=== PATIENT | male | born 1995 | race Caucasian/White ===

== ENCOUNTER 2016-08-23 12:25 | Emergency (ER) | payer OTHER ==
[~2016-08-23] VITALS: Ht 177.8 cm; Wt 107.5 kg
[2016-08-23 12:28] VITALS: TEMP 36.6; Ht 177.8 cm; Wt 107.5 kg
[2016-08-23 14:10] LABS: URINE APPEARANCE CLEAR (CLEAR); URINE BILIRUBIN NEG (NEG); URINE COLOR YELLOW; URINE NITRITE NEG (NEG); URINE SPECIFIC GRAVITY 1.025 (1.000-1.030); UROBILINOGEN NEG (NEG)
[2016-08-23 14:19] LABS: MANUAL MICROSCOPIC REQUIRED? NO; REVIEW REQ? NO
[2016-08-23 14:27] LABS: BASO % 0.6 %; BASO ABS # 0.04 K/uL (0-0.2); COMPLETE YES; EOS % 1.2 %; HEMATOCRIT 44.2 % (42-52); IG% 0.3 %; LYMPH % 30.7 %; LYMPH ABS # 2.02 K/uL (1.2-3.4); MEAN CELL VOLUME 83.1 fL (80-100); MEAN CORPUSCULAR HEMOGLOBIN 29.5 pg (25-34); MEAN CORPUSCULAR HGB CONC 35.5 g/dl (32-36); MEAN PLATELET VOLUME 10.6 fL (7.4-10.4); MONO % 7.3 %; NEUT % 59.9 %; PLATELET COUNT 251 K/uL (130-400); RED BLOOD COUNT 5.32 M/uL (4.7-6.1); WHITE BLOOD COUNT 6.59 K/uL (4.8-10.8)
[2016-08-23 14:32] LABS: CALCIUM 9.2 mg/dl (8.5-10.1)
--- NOTE | 2016-08-23 15:28 | DIAGNOSTIC IMAGING REPORT ---
ULTRASOUND TESTES AND SCROTUM CLINICAL HISTORY: Left scrotal pain. COMPARISON STUDY: No priors. TECHNIQUE: Real-time, grayscale, and color Doppler sonography of the testes and scrotum is performed. Images are reviewed in the transverse and longitudinal planes. FINDINGS: The testes are normal in size and homogeneous in echotexture. The right testis measures 5.4 x 2.2 x 3.4 cm and the left testis measures 5.0 x 2.4 x 3.2 cm. No intratesticular mass is seen. Testicular blood flow is normal and symmetric. Normal Doppler waveforms are identified in both testes. The epididymal heads are normal in appearance. The right epididymal head measures 0.7 cm in length and the left epididymal head measures 1.2 cm in length. A 2 mm epididymal head cyst is noted on the left. No varicocele or hydrocele is seen. IMPRESSION: Unremarkable sonographic assessment of the testes and scrotum. Electronically signed by: Jose D Basurto M.D. 08/23/2016 3:27 PM Dictated Date/Time: 08/23/2016 3:26 PM
--- NOTE | 2016-08-23 15:28 | DIAGNOSTIC IMAGING REPORT ---
ABDOMEN ULTRASOUND FOR HERNIA CLINICAL HISTORY: Left testicular and abdominal pain. COMPARISON STUDY: None. FINDINGS: Small fat-containing reducible left inguinal hernia. No masses or lymph nodes within the left groin. IMPRESSION: Small fat-containing reducible left inguinal hernia. Electronically signed by: Uvaldo Chapman M.D. 08/23/2016 3:27 PM Dictated Date/Time: 08/23/2016 3:26 PM
[2016-08-23 16:05] VITALS: BP 116/77; PULSE 74; O2SAT 99
--- NOTE | 2016-08-24 21:17 | EMERGENCY ROOM VISIT NOTE ---
ED Visit Note First contact with patient: 13:25 Chief Complaint: Left groin and testicle pain. History of Present Illness: Mr. Galeana is a 21-year-old white male who ambulates into the ED complaining of right groin and testicular pain approximately one week. Patient reports he was referred by a local urgent care center who evaluated him just prior to arrival at the hospital and expressed concerns a possible inguinal hernia. Patient reports he has been having mild pain in the left groin and left testicle approximately one week. This discomfort has been constant. He waxed and waned. He describes it as achy sensation. He rates his discomfort 2/10. He feels the pain is most prominently in the testicles but every once in a while he does feel a in the right inguinal area. He has not identified any aggravating factors related to the pain. He has not taken any medications for his pain prior to arrival at the hospital. He denies any associated symptoms including fevers, chills sweats, skin eruptions, skin color changes, skin bulging, scrotal bulging, urinary symptoms, hematuria, or abdominal pain, nausea , vomiting, urinary burning, hematuria, back/flank pain and he reports he is not sexually active and has had no drainage from his penis or other lesions. Review of Systems: As noted above in history of present illness. 8 body systems were reviewed and found to be negative as noted above. Past Medical History: Asthma pneumonia, juvenile rheumatoid arthritis, status post left meniscus surgery. Current Medications: Patient denies. Allergies to Medications: Patient denies. Social History: Patient is currently employed and feels safe in his home environment; he denies tobacco and alcohol use. Physical Examination: Vital Signs: Date Time Temp Pulse Resp B/P Pulse Ox O2 Delivery O2 Flow Rate FiO2 08/23/16 16:05 74 16 116/77 99 08/23/16 14:04 71 18 127/77 97 Room Air 08/23/16 12:28 36.6 73 18 144/84 95 Room Air GENERAL: 21-year-old male in no acute distress, nontoxic-appearing, afebrile and hemodynamically stable. NEUROLOGICAL: Awake, alert and oriented to person, place and time. Answering questions appropriately and following commands. Normal gait. Good hand eye coordination. No focal motor sensory deficits. SKIN: Warm, dry and pink. No soft tissue eruptions or trauma noted. HEENT: Atraumatic and normocephalic. PERRL. Sclera white and conjunctiva pink. Pharynx is nonerythematous or edematous. Speech normal. No lymphadenopathy. Trachea midline. No jugular venous distention. BACK: No tenderness over the bony spine. No CVA tenderness. THORAX: Lungs sounds are clear to auscultation and equal bilaterally with symmetrical chest wall. ABDOMEN: Flat, soft and nontender. Positive bowel sounds in all quadrants. No guarding, rigidity or organomegaly. GENITALS: Circumcised, immature penis. Partially shaven pubic hair. No external erythema, edema or abnormal lesions. No tenderness throughout the penis or drainage from the meatus. Left testicle was mildly tender to palpation. The testicle as smooth, firm and is and appears to have a normal position. The right testicle is nontender and is in the normal position. The testicle is smooth, firm. There is no obvious hernia within either scrotal sac. There is minimal tenderness in the inguinal canal bilaterally with no palpable masses. No local lymphadenopathy. EXTREMITIES: Moves all extremities well on command and with purpose. All distal neurovascular statuses are intact and equal bilaterally. ED Course: Patient is assessed as noted above. Laboratory Testing: Test 08/23/16 12:40 08/23/16 14:01 Range/Units Urine Color YELLOW Urine Appearance CLEAR CLEAR Urine pH 6.0 4.5-7.5 Urine Specific [place] 1.025 1.000-1.030 Urine Protein NEG NEG Urine Glucose (UA) NEG NEG Urine Ketones NEG NEG Urine Occult Blood NEG NEG Urine Nitrite NEG NEG Urine Bilirubin NEG NEG Urine Urobilinogen NEG NEG Urine Leukocyte Esterase NEG NEG White Blood Count 6.59 4.8-10.8 K/uL Red Blood Count 5.32 4.7-6.1 M/uL Hemoglobin 15.7 14.0-18.0 g/dL Hematocrit 44.2 42-52 % Mean Corpuscular Volume 83.1 80-100 fL Mean Corpuscular Hemoglobin 29.5 25-34 pg Mean Corpuscular Hemoglobin Concent 35.5 32-36 g/dl Platelet Count 251 130-400 K/uL Mean Platelet Volume 10.6 7.4-10.4 fL Neutrophils (%) (Auto) 59.9 % Lymphocytes (%) (Auto) 30.7 % Monocytes (%) (Auto) 7.3 % Eosinophils (%) (Auto) 1.2 % Basophils (%) (Auto) 0.6 % Neutrophils # (Auto) 3.95 1.4-6.5 K/uL Lymphocytes # (Auto) 2.02 1.2-3.4 K/uL Monocytes # (Auto) 0.48 0.11-0.59 K/uL Eosinophils # (Auto) 0.08 0-0.5 K/uL Basophils # (Auto) 0.04 0-0.2 K/uL RDW Standard Deviation 40.0 36.4-46.3 fL RDW Coefficient of Variation 13.3 11.5-14.5 % Immature Granulocyte % (Auto) 0.3 % Immature Granulocyte # (Auto) 0.02 0.00-0.02 K/uL Sodium Level 140 136-145 mmol/L Potassium Level 4.0 3.5-5.1 mmol/L Chloride Level 105 98-107 mmol/L Carbon Dioxide Level 29 21-32 mmol/L Anion Gap 6.0 3-11 mmol/L Blood Urea Nitrogen 15 7-18 mg/dl Creatinine 1.00 0.60-1.40 mg/dl Est Creatinine Clear Calc Drug Dose 143.5 ml/min Estimated GFR () 124.1 Estimated GFR (Non- 107.1 BUN/Creatinine Ratio 15.0 10-20 Random Glucose 89 70-99 mg/dl Calcium Level 9.2 8.5-10.1 mg/dl Total Bilirubin 1.0 0.2-1 mg/dl Direct Bilirubin 0.2 0-0.2 mg/dl Aspartate Amino Transf (AST/SGOT) 18 15-37 U/L Alanine Aminotransferase (ALT/SGPT) 30 12-78 U/L Alkaline Phosphatase 82 45-117 U/L Total Protein 7.5 6.4-8.2 gm/dl Albumin 4.3 3.4-5.0 gm/dl Abdominal Ultrasound for Hernia: Was reviewed by myself and read by the radiologist showing a small fat containing reducible left inguinal hernia without masses or lymph nodes within the left groin. Testicular Ultrasound: Was reviewed by myself and read by the radiologist and shows an unremarkable assessment of the testes and scrotum with no signs of torsion, epididymitis or abdominal contacts and scrotum. Patient was offered pain medications and refused. Patient was educated about tonight's findings and instructed on his treatment plan; he verbalizes understanding of this plan. Clinical Impression: Left testicular and inguinal pain. Decision-Making: Initially my differential diagnosis I considered inguinal hernia, testicular torsion, epididymitis, urinary tract infection and other causes. Disposition: Patient discharged home in stable condition; prior to departure he was reassessed and subjectively reported he was pain-free. Plan: Patient was encouraged to alternate ibuprofen and acetaminophen as needed for pain. Patient was encouraged to avoid heavy lifting for the next 5-6 days. Patient was encouraged to follow-up at [facility] for recheck in 5-6 days. Patient was encouraged return ED for worsening/uncontrolled pain, lumps or any signs of enlargement in the lower abdomen over testicular area, fevers or any new/concerning symptoms.
== END 2016-08-23 16:07 | disposition home or self-care (01) ==
LOC: C.EDB 12:28 → C.EDD 16:07
DX: N50.819 Testicular pain, unspecified (principal)